=== PATIENT | male | born 1970 | race Caucasian/White ===

== ENCOUNTER 2024-03-29 04:27 | Inpatient (IN) ==
[2024-03-29] MEDS: SODIUM CHLORIDE 0.9% 1,000 ML IV ONE ×3 (04:41→09:11)
[2024-03-29] MEDS: ONDANSETRON INJ 2 MG/ML 2 ML VIAL IV STA (04:41)
[2024-03-29 05:00] LABS: Basophils # (auto) 0.06 K/uL (0.00-0.20); Basophils % (auto) 0.5 %; Eosinophils # (auto) 0.16 K/uL (0.00-0.50); Eosinophils % (auto) 1.2 %; Hematocrit (blood only) 49.9 % (42.0-52.0); Immature Granulocytes # (auto) 0.08 K/uL (0.01-0.20); Immature Granulocytes % (auto) 0.6 %; Lymphocytes # (auto) 1.89 K/uL (1.20-3.40); Lymphocytes % (auto) 14.3 %; Mean Corpuscular Hemoglobin 30.2 pg (25.0-34.0); Mean Corpuscular Hgb Conc 34.1 g/dL (32.0-36.0); Mean Corpuscular Volume 88.6 fL (80.0-100.0); Mean Platelet Volume 10.9 fL (9.4-12.4); Monocytes # (auto) 0.69 K/uL (0.11-0.59); Monocytes % (auto) 5.2 %; Neutrophils # (auto) 10.32 K/uL (1.40-6.50); Neutrophils % (auto) 78.2 %; Platelet Count 242 K/uL (130-400); RDW Standard Deviation 42.3 fL (36.4-46.3); Red Blood Count 5.63 M/uL (4.70-6.10)
[2024-03-29 05:12] LABS: Albumin Globulin Ratio 1.3 (0.9-2); Albumin Level 4.7 gm/dl (3.4-5.0); BUN Creatinine Ratio 13.6 (10-20); Bilirubin,Total 0.8 mg/dl (0.2-1.0); Calcium 10.5 mg/dl (8.6-10.3); Creatinine Clr Calc Pharmacy 61.9 ml/min; Est GFR (African American) 58.8 ml/min; Est GFR (Non-African American) 50.8 ml/min; Globulin 3.7 gm/dl (2.5-4.0); Magnesium 2.1 mg/dl (1.7-2.4); Potassium 4.2 mmol/L (3.5-5.1); Total Protein 8.4 gm/dl (6.0-8.3)
--- NOTE | 2024-03-29 05:12 | CT Scan Report ---
Exam(s): CT ABDOMEN + PELVIS Without Contrast EXAM: CT Abdomen and Pelvis Without Intravenous Contrast CLINICAL HISTORY: Left flank Pain. TECHNIQUE: Axial computed tomography images of the abdomen and pelvis without intravenous contrast. CTDI is 27.28 mGy and DLP is 1393.33 mGy-cm. Automated exposure control was utilized for the study. A dose lowering technique was utilized adhering to the principles of ALARA. COMPARISON: No relevant prior studies available. FINDINGS: Lung bases: Unremarkable. No mass. No consolidation. ABDOMEN: Liver: Fatty infiltration of the liver. Gallbladder and bile ducts: Bile duct is closed. No calcified stones. Pancreas: Unremarkable. No ductal dilation. Spleen: Unremarkable. No splenomegaly. Adrenals: Unremarkable. No mass. Kidneys and ureters: Mild left hydronephrosis secondary to a 2 mm ureterovesical junction calculus. Mild right medullary nephrocalcinosis. No hydronephrosis. Stomach and bowel: Diverticulosis. No obstruction. No mucosal thickening. PELVIS: Appendix: Normal appendix. Bladder: Unremarkable. No stones. Reproductive: Unremarkable as visualized. ABDOMEN and PELVIS: Intraperitoneal space: Unremarkable. No free air. No significant fluid collection. Bones/joints: There are degenerative changes of the spine. No acute fracture. No dislocation. Soft tissues: Small bilateral fat-containing inguinal hernias. Vasculature: Unremarkable. No abdominal aortic aneurysm. Lymph nodes: Unremarkable. No enlarged lymph nodes. IMPRESSION: 1. Mild left hydronephrosis secondary to a 2 mm ureterovesical junction calculus. 2. Fatty infiltration of the liver. 3. Mild right medullary nephrocalcinosis. No hydronephrosis. 4. Diverticulosis. Electronically signed by: Hina Cantu MD 03/29/24 05:11 AM
[2024-03-29] MEDS: fentaNYL citrate PF 100 MCG/2 ML VIAL IV STA (05:13)
[2024-03-29 05:20] LABS: Troponin I High Sensitivity 3.8 pg/ml (0-20)
[2024-03-29 05:23] LABS: Prothrombin Time 10.4 Seconds (9.0-12.0)
[2024-03-29 05:27] LABS: Appearance Urine Clear (Clear); Bacteria Urine Automated None Seen (None Seen); Bilirubin Urine Negative (Negative); Blood Urine Trace (Negative); Cast Urine Automated 0-2 /lpf (0-2); Color Urine Yellow; Epithelial Cell Urine Auto 0-2 /hpf (0-2); Glucose Urine UA Negative (Negative); Ketones Urine Trace (Negative); Leukocyte Esterase Urine Negative (Negative); Nitrite Urine Negative (Negative); Protein Urine 1+ (Negative); RBC Urine Automated 0-2 /hpf (0-2); Specific Gravity Urine 1.037 (1.000-1.030); Urobilinogen Urine Negative (Negative); WBC Urine Automated 0-5 /hpf (0-5)
[2024-03-29] MEDS: KETOROLAC 30 MG/ML VIAL IV ONE (05:34)
--- NOTE | 2024-03-29 05:34 | Emergency Department Note ---
Impression & Plan Acute left flank pain, Calculus of left ureter, Elevated lactic acid level, Hydronephrosis of left kidney, Leukocytosis, Acute pancreatitis ED Provider Note HISTORY OF PRESENT ILLNESS: Patient is a 54-year-old male presenting with left flank pain. Patient reports that he was awoken at 1 AM today from sleep with left flank pain. He states he is never had pain like this before. Describes it as a sharp and burning sensation. Denies any dysuria or hematuria. Reports he has vomited multiple times and is currently feeling nauseous. He denies any recent diarrhea. Denies any history of abdominal surgeries. Denies any notable fevers at home. Denies any chest pain or shortness of breath. Denies any history of kidney stones. Currently locates the pain in the left lateral flank with radiation down into the left groin. ROS: as above PHYSICAL EXAM: Constitutional: Patient appears in mild distress. Patient appears very uncomfortable on examination and is diaphoretic. HENT: Head: Normocephalic and atraumatic. Eyes: EOMI, PERRL Mouth/Throat: Mucous membranes moist. Neck: Trachea midline. Neck supple. Cardiovascular: RRR, No murmurs, rubs or gallops. Intact distal pulses. Pulmonary/Chest: No respiratory distress. Breath sounds clear and equal bilaterally. No wheezes or rales. Abdominal: Abdomen soft, no tenderness, rebound or guarding. Musculoskeletal: No edema, tenderness or deformity noted. Skin: Warm and dry. No rash, erythema, pallor or cyanosis Psychiatric: Appropriate mood and affect for situation. Neurological: Alert and keenly responsive. CN II-XII grossly intact, moving all extremities equally and fully. MDM: - Vitals signs showed hypertension and bradycardia - History obtained via patient. History as above. - Chronic conditions affecting care: Obesity - Differential diagnoses include, but are not limited to: ureteral stone; UTI; colitis; diverticulitis; perforated viscous - Order placed for continuous cardiac monitoring. At this time, monitor showed rate of 60 bpm with normal sinus rhythm, per my interpretation. - External medical records reviewed. Primary care visit note dated 01/15/2024 was reviewed. Patient follows in their clinic for his routine health maintenance examination. - EKG interpreted by myself showed normal sinus rhythm. Rate bradycardic at 58 bpm. QT 374. No acute ischemic changes. - Laboratory workup interpreted by myself showed leukocytosis (WBC 13.20) with left shift; normal PT/INR; slight hyponatremia (Na 135); CKD (Cr 1.54); elevated lactic acid (23); hypercalcemia (Ca 10.5); normal troponin; normal liver function; elevated lipase (467) - CT abdomen/pelvis wo contrast mild left hydronephrosis due to a 2 mm UVJ stone. - Blood cultures obtained and procalcitonin added to workup - Patient given 2L NS, 4 mg IV zofran and 50 mcg IV fentanyl. On reassessment, he is still complaining of significant pain, 15 mg IV toradol ordered. - Patient started empirically on 2g IV rocephin. Patient's sepsis fluid resuscitation volume based on ideal body weight is 2100.0 mL. - Discussion was had with case specialist about patient's case and need for admission - Hospitalist consulted for admission - [facility] ASSESSMENT AND PLAN: Diagnosis: acute left flank pain; left ureteral stone; left hydronephrosis; elevated lactic acid; acute pancreatitis; leukocytosis Plan: admit Past Med/Surg History Problem List (Updated 03/29/24 @ 05:42 by Loulou Payne MD) Acute pancreatitis (Acute) Leukocytosis (Acute) Hydronephrosis of left kidney (Acute) Elevated lactic acid level (Acute) Calculus of left ureter (Acute) Acute left flank pain (Acute) Colon cancer screening Encounter for pre-operative examination Routine health maintenance (Chronic) Obesity Bilateral hand pain Medical History Arthritis Hx MRSA infection History of COVID-19 Osteoarthritis Surgical History Hx of vasectomy History of tooth extraction History of wisdom tooth extraction Hx of shoulder surgery Family History Grandmother Breast cancer Other No family history of adverse response to anesthesia Denies family history of Ovarian cancer Prostate cancer Myocardial infarction Colorectal cancer Social History Smoking Status: Former smoker Tobacco Type: Cigarettes Cigarettes Per Day: 10 cigs per day > advised npo status; Second Hand Exposure: No; Do You Dip or Chew Tobacco: No; Hx Alcohol Use: Yes Hx Substance Use: No Preferred Language: [place] Communication Ability: Effective Emergency Department Aide Required: No Beliefs That Will Affect Care: None marital status: Current Living Situation: Spouse current occupational status: employed How many Children do You have: 2 Feels Safe at Home: Yes caffeine: Yes Dental Care, Regularly: Yes Physical Activity Frequency: Does not Exercise Seatbelt Use: always Sunscreen Use: Yes Assistive Devices: None Allergies Allergies Allergy/AdvReac Type Severity Reaction Status Date / Time No Known Allergies Allergy Verified 01/20/24 08:33 Home Meds Home Medications Medication Instructions Recorded Confirmed No Known Home Medications 01/20/24 01/20/24 Results & Data (ED) Vital Signs Vital Signs - 24 hr 03/29/24 04:30 03/29/24 04:44 Temperature 36.5 C Temperature Source Temporal Artery Scan Pulse Rate 62 58 L Respiratory Rate 20 Respiratory Effort / Characteristics Non-Labored Spontaneous Respiratory Depth Normal Blood Pressure 153/79 H Blood Pressure Mean 103 Pulse Oximetry 100 Oxygen Delivery Method Room Air Sepsis Recent Fever Within 48 Hours No Sepsis New/Unexplained Change in Mental Status N/A Sepsis Action Taken by Nursing No Action Required Laboratory Data 03/29/24 04:29 03/29/24 04:29 Lab Results 03/29/24 03/29/24 Range/Units 04:29 04:41 WBC 13.20 H (4.8-10.8) K/ul RBC 5.63 (4.70-6.10) M/uL Hgb 17.0 (14.0-18.0) g/dl Hct 49.9 (42.0-52.0) % MCV 88.6 (80.0-100.0) fL MCH 30.2 (25.0-34.0) pg MCHC 34.1 (32.0-36.0) g/dL RDW Std Deviation 42.3 (36.4-46.3) fL RDW Coeff of Waylon 13.0 (11.5-14.5) % Plt Count 242 (130-400) K/uL MPV 10.9 (9.4-12.4) fL Immature Gran % (Auto) 0.6 % Neut % (Auto) 78.2 % Lymph % (Auto) 14.3 % [place] % (Auto) 5.2 % Eos % (Auto) 1.2 % Baso % (Auto) 0.5 % Neut # (Auto) 10.32 H (1.40-6.50) K/uL Lymph # (Auto) 1.89 (1.20-3.40) K/uL [place] # (Auto) 0.69 H (0.11-0.59) K/uL Eos # (Auto) 0.16 (0.00-0.50) K/uL Baso # (Auto) 0.06 (0.00-0.20) K/uL Immature Gran # (Auto) 0.08 (0.01-0.20) K/uL PT 10.4 (9.0-12.0) Seconds INR 1.0 (0.9-1.1) Sodium 135 L (136-145) mmol/L Potassium 4.2 (3.5-5.1) mmol/L Chloride 101 (98-107) mmol/L Carbon Dioxide 28 (21-32) mmol/L Anion Gap 6 (3-11) BUN 21 (6-23) mg/dl Creatinine 1.54 H (0.6-1.4) mg/dl Est Cr Clr Drug Dosing 61.9 ml/min Est GFR ( Amer) 58.8 ml/min Est GFR (Non-Af Amer) 50.8 ml/min BUN/Creatinine Ratio 13.6 (10-20) Glucose 135 H (70-99(Fasting)) mg/dl Lactate 2.3 H* (0.4-2.0) mmol/L Calcium 10.5 H (8.6-10.3) mg/dl Magnesium 2.1 (1.7-2.4) mg/dl Total Bilirubin 0.8 (0.2-1.0) mg/dl AST 19 (13-39) U/L ALT 26 (7-52) U/L Alkaline Phosphatase 66 (34-104) U/L Troponin I High Sens 3.8 (0-20) pg/ml Total Protein 8.4 H (6.0-8.3) gm/dl Albumin 4.7 (3.4-5.0) gm/dl Globulin 3.7 (2.5-4.0) gm/dl Albumin/Globulin Ratio 1.3 (0.9-2) Lipase 467 H (11-82) U/L Urine Color Yellow Urine Appearance Clear (Clear) Urine pH 5.0 (4.5-7.5) Ur Specific [place] 1.037 H (1.000-1.030) Urine Protein 1+ H (Negative) Urine Glucose (UA) Negative (Negative) Urine Ketones Trace H (Negative) Urine Blood Trace H (Negative) Urine Nitrite Negative (Negative) Urine Bilirubin Negative (Negative) Urine Urobilinogen Negative (Negative) Ur Leukocyte Esterase Negative (Negative) Urine WBC (Auto) 0-5 (0-5) /hpf Urine RBC (Auto) 0-2 (0-2) /hpf U Hyaline Cast (Auto) 0-2 (0-2) /lpf U Epithel Cells (Auto) 0-2 (0-2) /hpf Urine Bacteria (Auto) None Seen (None Seen) Administered Medications Discontinued Medications Fentanyl Citrate (Fentanyl Citrate Pf 100 Mcg/2 Ml Vial) 50 mcg IV NOW STA Stop: 03/29/24 05:09 Last Admin: 03/29/24 05:13 Dose: 50 mcg Documented By: TYRONE Sodium Chloride (Nss) 1,000 mls @ 999 mls/hr IV .Q1H1M ONE Stop: 03/29/24 05:29 Last Admin: 03/29/24 04:41 Dose: 999 mls/hr Documented By: BRUNO Ketorolac Tromethamine (Ketorolac 30 Mg/Ml Vial) 15 mg IV NOW ONE Stop: 03/29/24 05:32 Last Admin: 03/29/24 05:34 Dose: 15 mg Documented By: BRUNO Ondansetron HCl (Ondansetron Inj 2 Mg/Ml 2 Ml Vial) 4 mg IV NOW STA Stop: 03/29/24 04:30 Last Admin: 03/29/24 04:41 Dose: 4 mg Documented By: BRUNO Imaging Data Radiologist's Impression: Abdomen/Pelvis CT 03/29/24 04:33 Exam(s): CT ABDOMEN + PELVIS Without Contrast EXAM: CT Abdomen and Pelvis Without Intravenous Contrast CLINICAL HISTORY: Left flank Pain. TECHNIQUE: Axial computed tomography images of the abdomen and pelvis without intravenous contrast. CTDI is 27.28 mGy and DLP is 1393.33 mGy-cm. Automated exposure control was utilized for the study. A dose lowering technique was utilized adhering to the principles of ALARA. COMPARISON: No relevant prior studies available. FINDINGS: Lung bases: Unremarkable. No mass. No consolidation. ABDOMEN: Liver: Fatty infiltration of the liver. Gallbladder and bile ducts: Bile duct is closed. No calcified stones. Pancreas: Unremarkable. No ductal dilation. Spleen: Unremarkable. No splenomegaly. Adrenals: Unremarkable. No mass. Kidneys and ureters: Mild left hydronephrosis secondary to a 2 mm ureterovesical junction calculus. Mild right medullary nephrocalcinosis. No hydronephrosis. Stomach and bowel: Diverticulosis. No obstruction. No mucosal thickening. PELVIS: Appendix: Normal appendix. Bladder: Unremarkable. No stones. Reproductive: Unremarkable as visualized. ABDOMEN and PELVIS: Intraperitoneal space: Unremarkable. No free air. No significant fluid collection. Bones/joints: There are degenerative changes of the spine. No acute fracture. No dislocation. Soft tissues: Small bilateral fat-containing inguinal hernias. Vasculature: Unremarkable. No abdominal aortic aneurysm. Lymph nodes: Unremarkable. No enlarged lymph nodes. IMPRESSION: 1. Mild left hydronephrosis secondary to a 2 mm ureterovesical junction calculus. 2. Fatty infiltration of the liver. 3. Mild right medullary nephrocalcinosis. No hydronephrosis. 4. Diverticulosis. Electronically signed by: Hina Cantu MD 03/29/24 05:11 AM Discharge Plan Visit Data Chief Complaint: Flank Pain Stated Complaint: SIDE PAIN,NAUSEA,VOM ED Provider: Loulou Payne Discharge Problem: Acute left flank pain, Calculus of left ureter, Elevated lactic acid level, Hydronephrosis of left kidney, Leukocytosis, Acute pancreatitis Forms Stand Alone Forms: My [facility] Prescriptions Prescriptions: No Action No Known Home Medications Referrals Referrals: Lenora Massey MD [Primary Care Provider] -
--- NOTE | 2024-03-29 05:55 | History & Physical Report ---
Date of Service March 29, 2024 Assessment & Plan (1) Calculus of left ureter: Plan: Patient with 2mm obstructing stone at left UVJ with hydronephrosis. He does have elevation in Cr from baseline at 1.53 from 1.25. Concern for possible infection given leukocytosis and elevation of lactate -Admit to medical -Keep NPO -Flomax 0.4mg po ordered now and daily -IVF with LR at 125mL/hr -Urine strainer -Tylenol PRN -Zofran PRN -Morphine PRN -Urology consultation appreciated Patient received Ceftriaxone - will hold additional antibiotics for now pending additional workup (2) Elevated lipase: Plan: Patient denies epigastric pain. No findings on CT of the abdomen suggestive of acute pancreatitis -Keep NPO as above -Pain control -Anti-emetics -Consider repeat lipase level with AM labs if pain continues (3) Elevated lactic acid level: Plan: BP stable -Repeat pending Plan F/E/N - LR at 125mL/hr x 2L, monitor electrolytes and replete as needed, NPO for now Ppx - SCDs Code - Full Dispo - Admit to medical History of Present Illness Chief Complaint: left flank pain Primary Care Provider: Lenora Massey MD 54yo male presenting with acute onset left flank pain that woke him from sleep at 01:00. Pain is severe, 10/10, constant with associated nausea and diaphoresis. No urinary complaints. He does report constipation Otherwise denies chest pain, palpitations, SOB, cough. No history of renal stones ER Course: Ceftriaxone 2L NSS Toradol 15mg IV Fentanyl 50mcg IV Flomax - ordered, not yet given Dilaudid 1mg IV - ordered, not yet given Allergies Allergy/AdvReac Type Severity Reaction Status Date / Time No Known Allergies Allergy Verified 01/20/24 08:33 Home Medications Medication Instructions Recorded Confirmed Type No Known Home Medications 01/20/24 01/20/24 History Past Med/Surg History Problem List (Updated 03/29/24 @ 06:16 by Priya Berger DO) Elevated lipase Acute pancreatitis (Acute) Leukocytosis (Acute) Hydronephrosis of left kidney (Acute) Elevated lactic acid level (Acute) Calculus of left ureter (Acute) Acute left flank pain (Acute) Colon cancer screening Encounter for pre-operative examination Routine health maintenance (Chronic) Obesity Bilateral hand pain Medical History Arthritis Hx MRSA infection 15 yrs ago to face > resolved History of COVID-19 approx 2 yrs ago > not hospitalized Osteoarthritis Surgical History Hx of vasectomy History of tooth extraction History of wisdom tooth extraction Hx of shoulder surgery Left Family History Grandmother Breast cancer Other No family history of adverse response to anesthesia Denies family history of Ovarian cancer Prostate cancer Myocardial infarction Colorectal cancer Social History Smoking Status: Former smoker Tobacco Type: Cigarettes Cigarettes Per Day: 10 cigs per day > advised npo status; Second Hand Exposure: No; Do You Dip or Chew Tobacco: No; Hx Alcohol Use: Yes Hx Substance Use: No Preferred Language: Citizen Of [place] Communication Ability: Effective Cement Car Dumper Required: No Beliefs That Will Affect Care: None marital status: Current Living Situation: Spouse current occupational status: employed How many Children do You have: 2 Feels Safe at Home: Yes caffeine: Yes Dental Care, Regularly: Yes Physical Activity Frequency: Does not Exercise Seatbelt Use: always Sunscreen Use: Yes Assistive Devices: None Review of Systems Review of Systems: All systems reviewed & are unremarkable except as noted in HPI & below Physical Exam Physical Exam: General: patient in distress secondary to acute left flank pain Skin: cool to touch, clammy HEENT: NC/AT, PERRL, EOMI, anicteric sclera, conjunctiva without injection, external ear normal to inspection and nontender, nares patent, moist mucus membranes, dentition intact, no oropharyngeal lesions, neck supple, trachea midline, no LAD, no thyromegaly, no JVD Heart: +S1/S2, regular, no m/r/g Lungs: equal air entry bilaterally, no rales/rhonchi/wheezes Abd: +BS, soft,mildly distended, tender to palpation in LLQ, no rebound/guarding Ext: cool, 2+ pulses in UE/LE bilaterally, no clubbing/cyanosis or edema Neuro: nonfocal, patient AA&O x 4, speech intact, no facial droop, moving all extremities on command with equal strength 5/5 Results & Data Results & Data Vital Signs (Past 12 Hours) Vital Signs Temp Pulse Resp BP Pulse Ox O2 Del Method 03/29/24 04:44 58 L 03/29/24 04:30 36.5 C 62 20 153/79 H 100 Room Air Laboratory Results Laboratory Results WBC 13.20 K/ul (4.8-10.8) H 03/29/24 04:29 RBC 5.63 M/uL (4.70-6.10) 03/29/24 04:29 Hgb 17.0 g/dl (14.0-18.0) 03/29/24 04:29 Hct 49.9 % (42.0-52.0) 03/29/24 04:29 MCV 88.6 fL (80.0-100.0) 03/29/24 04:29 MCH 30.2 pg (25.0-34.0) 03/29/24 04: MCHC 34.1 g/dL (32.0-36.0) 03/29/24 04:29 RDW Std Deviation 42.3 fL (36.4-46.3) 03/29/24 04:29 RDW Coeff of Waylon 13.0 % (11.5-14.5) 03/29/24 04:29 Plt Count 242 K/uL (130-400) 03/29/24 04:29 MPV 10.9 fL (9.4-12.4) 03/29/24 04:29 Immature Gran % (Auto) 0.6 % 03/29/24 04:29 Neut % (Auto) 78.2 % 03/29/24 04:29 Lymph % (Auto) 14.3 % 03/29/24 04:29 [place] % (Auto) 5.2 % 03/29/24 04:29 Eos % (Auto) 1.2 % 03/29/24 04:29 Baso % (Auto) 0.5 % 03/29/24 04:29 Neut # (Auto) 10.32 K/uL (1.40-6.50) H 03/29/24 04:29 Lymph # (Auto) 1.89 K/uL (1.20-3.40) 03/29/24 04:29 [place] # (Auto) 0.69 K/uL (0.11-0.59) H 03/29/24 04:29 Eos # (Auto) 0.16 K/uL (0.00-0.50) 03/29/24 04:29 Baso # (Auto) 0.06 K/uL (0.00-0.20) 03/29/24 04:29 Immature Gran # (Auto) 0.08 K/uL (0.01-0.20) 03/29/24 04:29 PT 10.4 Seconds (9.0-12.0) 03/29/24 04:29 INR 1.0 (0.9-1.1) 03/29/24 04:29 Sodium 135 mmol/L (136-145) L 03/29/24 04:29 Potassium 4.2 mmol/L (3.5-5.1) 03/29/24 04:29 Chloride 101 mmol/L (98-107) 03/29/24 04:29 Carbon Dioxide 28 mmol/L (21-32) 03/29/24 04:29 Anion Gap 6 (3-11) 03/29/24 04:29 BUN 21 mg/dl (6-23) 03/29/24 04:29 Creatinine 1.54 mg/dl (0.6-1.4) H 03/29/24 04:29 Est Cr Clr Drug Dosing 61.9 ml/min 03/29/24 04:29 Est GFR ( Amer) 58.8 ml/min 03/29/24 04:29 Est GFR (Non-Af Amer) 50.8 ml/min 03/29/24 04:29 BUN/Creatinine Ratio 13.6 (10-20) 03/29/24 04:29 Glucose 135 mg/dl (70-99(Fasting)) H 03/29/24 04:29 Lactate 2.3 mmol/L (0.4-2.0) H* 03/29/24 04:29 Calcium 10.5 mg/dl (8.6-10.3) H 03/29/24 04:29 Magnesium 2.1 mg/dl (1.7-2.4) 03/29/24 04:29 Total Bilirubin 0.8 mg/dl (0.2-1.0) 03/29/24 04:29 AST 19 U/L (13-39) 03/29/24 04:29 ALT 26 U/L (7-52) 03/29/24 04:29 Alkaline Phosphatase 66 U/L (34-104) 03/29/24 04:29 Troponin I High Sens 3.8 pg/ml (0-20) 03/29/24 04:29 Total Protein 8.4 gm/dl (6.0-8.3) H 03/29/24 04:29 Albumin 4.7 gm/dl (3.4-5.0) 03/29/24 04:29 Globulin 3.7 gm/dl (2.5-4.0) 03/29/24 04:29 Albumin/Globulin Ratio 1.3 (0.9-2) 03/29/24 04:29 Lipase 467 U/L (11-82) H 03/29/24 04:29 Urine Color Yellow 03/29/24 04:41 Urine Appearance Clear (Clear) 03/29/24 04:41 Urine pH 5.0 (4.5-7.5) 03/29/24 04:41 Ur Specific [place] 1.037 (1.000-1.030) H 03/29/24 04:41 Urine Protein 1+ (Negative) H 03/29/24 04:41 Urine Glucose (UA) Negative (Negative) 03/29/24 04:41 Urine Ketones Trace (Negative) H 03/29/24 04:41 Urine Blood Trace (Negative) H 03/29/24 04:41 Urine Nitrite Negative (Negative) 03/29/24 04:41 Urine Bilirubin Negative (Negative) 03/29/24 04:41 Urine Urobilinogen Negative (Negative) 03/29/24 04:41 Ur Leukocyte Esterase Negative (Negative) 03/29/24 04:41 Urine WBC (Auto) 0-5 /hpf (0-5) 03/29/24 04:41 Urine RBC (Auto) 0-2 /hpf (0-2) 03/29/24 04:41 U Hyaline Cast (Auto) 0-2 /lpf (0-2) 03/29/24 04:41 U Epithel Cells (Auto) 0-2 /hpf (0-2) 03/29/24 04:41 Urine Bacteria (Auto) None Seen (None Seen) 03/29/24 04:41 Impressions Abdomen/Pelvis CT 03/29/24 04:33 Exam(s): CT ABDOMEN + PELVIS Without Contrast EXAM: CT Abdomen and Pelvis Without Intravenous Contrast CLINICAL HISTORY: Left flank Pain. TECHNIQUE: Axial computed tomography images of the abdomen and pelvis without intravenous contrast. CTDI is 27.28 mGy and DLP is 1393.33 mGy-cm. Automated exposure control was utilized for the study. A dose lowering technique was utilized adhering to the principles of ALARA. COMPARISON: No relevant prior studies available. FINDINGS: Lung bases: Unremarkable. No mass. No consolidation. ABDOMEN: Liver: Fatty infiltration of the liver. Gallbladder and bile ducts: Bile duct is closed. No calcified stones. Pancreas: Unremarkable. No ductal dilation. Spleen: Unremarkable. No splenomegaly. Adrenals: Unremarkable. No mass. Kidneys and ureters: Mild left hydronephrosis secondary to a 2 mm ureterovesical junction calculus. Mild right medullary nephrocalcinosis. No hydronephrosis. Stomach and bowel: Diverticulosis. No obstruction. No mucosal thickening. PELVIS: Appendix: Normal appendix. Bladder: Unremarkable. No stones. Reproductive: Unremarkable as visualized. ABDOMEN and PELVIS: Intraperitoneal space: Unremarkable. No free air. No significant fluid collection. Bones/joints: There are degenerative changes of the spine. No acute fracture. No dislocation. Soft tissues: Small bilateral fat-containing inguinal hernias. Vasculature: Unremarkable. No abdominal aortic aneurysm. Lymph nodes: Unremarkable. No enlarged lymph nodes. IMPRESSION: 1. Mild left hydronephrosis secondary to a 2 mm ureterovesical junction calculus. 2. Fatty infiltration of the liver. 3. Mild right medullary nephrocalcinosis. No hydronephrosis. 4. Diverticulosis. Electronically signed by: Hina Cantu MD 03/29/24 05:11 AM ECG Additional Comments: EKG with sinus bradycardia at 58bpm, no acute ischemic changes Code Status & VTE Plan VTE Prophylaxis Plan VTE Prophylaxis will be ordered: Yes PG Care Time/CCT Total # of Minutes Spent Total Time Spent with Patient: Total time spent is greater than 50% in coordination of care (as documented) at patient's floor/unit and/or counseling patient: Coding Level of Care Code 90433 INT INP/OBS CARE 2/55MIN Diagnoses Calculus of left ureter N20.1 Elevated lipase R74.8 Elevated lactic acid level R79.89
[2024-03-29] MEDS: TAMSULOSIN HCL 0.4 MG CAP PO ONE (06:13)
[2024-03-29] MEDS: cefTRIAXone SODIUM 2,000 MG/50 ML BAG IV STA (06:14)
[2024-03-29] MEDS: HYDROmorphone INJ 1 MG/ML SYRINGE IV STA (06:23)
[2024-03-29] MEDS ORDERED: ONDANSETRON INJ 2 MG/ML 2 ML VIAL IV PRN (08:49)
[2024-03-29] MEDS ORDERED: MoRPHine SULFATE 2 MG/ML CARP IV PRN (08:49)
[2024-03-29] MEDS: POLYETHYLENE (MIRALAX) 17 GM PACK PO SCH (10:05)
[2024-03-29] MEDS: MoRPHine SULFATE 4 MG/ML 1 ML CARP\\VIAL IV PRN (10:09)
[2024-03-29] MEDS: LACTATED RINGER'S 1,000 ML IV SCH (10:17)
--- NOTE | 2024-03-29 12:21 | Urology Consultation ---
Date of Consultation March 29, 2024 Assessment & Plan (1) Hydronephrosis of left kidney: (2) Calculus of left ureter: 54 yo/M admitted for left flank pain secondary to an obstructing 2 mm left UVJ stone Patient is afebrile and hemodynamically stable Labs reviewedcreatinine 1.54, WBC 13.2 Urinalysis was not suggestive of infection Blood cultures are pending He was treated with Ceftriaxone on arrival His pain is currently tolerable We discussed options for stone management including trial of passage/medical expulsive therapy versus options for surgical management both inpatient and outpatient Discussed that his stone has a decent probability of passing spontaneously given its size and location After discussion, he elects trial of passage/medical expulsive therapy No surgical intervention today, okay for diet today and will reevaluate tomorrow Recommend hydration, tamsulosin, supportive care and pain control Strain all urine will follow, please contact our service with any questions or changes in clinical status History of Present Illness Attending Physician: Priya Berger DO History of Present Illness This is a 54-year-old male who presented to the emergency department this morning for evaluation of acute left flank pain, nausea and vomiting. He was afebrile and hemodynamically stable on arrival. Workup in the emergency department included CT abdomen/pelvis without contrast which showed mild left hydronephrosis secondary to a 2 mm UVJ stone. Lab work showed creatinine 1.54, WBC 13.2, hemoglobin 17.0, lactate 2.3. Urinalysis notable for 1+ protein, trace ketones and trace blood, but was negative for leukocyte esterase and bacteria. ED course included IV fluids, ketorolac, ondansetron and fentanyl. He was admitted to the hospital medicine service. Urology is consulted for left ureteral stone. Patient seen and examined at bedside. He reports he is currently feeling better since arrival. He reports left flank pain currently rated 4 out of 10. Denies nausea or vomiting. No fever or chills. He is voiding spontaneously, no dysuria or hematuria. No prior history of kidney stones. He reports that his father has history of kidney stones. Allergies Allergy/AdvReac Type Severity Reaction Status Date / Time No Known Allergies Allergy Verified 01/20/24 08:33 Home Medications Medication Instructions Recorded Confirmed Type No Known Home Medications 01/20/24 01/20/24 History Patient History Medical History Arthritis Hx MRSA infection 15 yrs ago to face > resolved History of COVID-19 approx 2 yrs ago > not hospitalized Osteoarthritis Surgical History Hx of vasectomy History of tooth extraction History of wisdom tooth extraction Hx of shoulder surgery Left Family History Grandmother Breast cancer Other No family history of adverse response to anesthesia Denies family history of Ovarian cancer Prostate cancer Myocardial infarction Colorectal cancer Social History Smoking Status: Current every day smoker Tobacco Type: Cigarettes Cigarettes Per Day: 10 cigs per day > advised npo status; Second Hand Exposure: No; Do You Dip or Chew Tobacco: No; Tobacco Cessation Education Requested by Patient: No Hx Alcohol Use: Yes Alcohol type: beer Hx Substance Use: No Preferred Language: [place] Communication Ability: Effective Perfumer Required: No Beliefs That Will Affect Care: None marital status: Current Living Situation: Spouse current occupational status: employed How many Children do You have: 2 Other Information That Helps Us Care for You: No Feels Safe at Home: Yes Safety Concerns: Feels Safe At This Time caffeine: Yes Dental Care, Regularly: Yes Physical Activity Frequency: Does not Exercise Seatbelt Use: always Sunscreen Use: Yes Assistive Devices: None Review of Systems Review of Systems: All systems reviewed & are unremarkable except as noted in HPI & below Physical Exam Constitutional: well developed and well nourished; no acute distress Respiratory: normal respiratory effort; no respiratory distress and no labored breathing Gastrointestinal (Abdomen): Inspection/Auscultation: abdomen normal to inspection Musculoskeletal: Head/Neck/Chest: normocephalic Neurologic: moves all extremities and awake Psychiatric: Orientation: alert and oriented x 3 Results & Data Vital Signs (Past 12 Hours) Vital Signs Temp Pulse Pulse Pulse Resp BP BP 03/29/24 08:56 36.5 C 86 18 148/78 H 03/29/24 08:06 61 18 184/89 H 03/29/24 06:28 55 L 22 155/91 H 03/29/24 04:44 58 L 03/29/24 04:30 36.5 C 62 20 153/79 H Pulse Ox O2 Del Method 03/29/24 08:56 97 Room Air 03/29/24 08:06 96 Room Air 03/29/24 06:28 97 Room Air 03/29/24 04:44 03/29/24 04:30 100 Room Air PG Care Time/CCT Total # of Minutes Spent Total Time Spent with Patient: Total time spent is greater than 50% in coordination of care (as documented) at patient's floor/unit and/or counseling patient: Coding Level of Care Code 45949 IN/OBS CONSULT LVL 4,60M Diagnoses Hydronephrosis of left kidney N13.30 Calculus of left ureter N20.1
[2024-03-29] MEDS: KETOROLAC TROMETHAMINE 15 MG/ML VIAL IV ONE (12:46)
--- NOTE | 2024-03-29 12:51 | Electrocardiogram Report ---
Test Reason : Blood Pressure : / mmHG Vent. Rate : 058 BPM Atrial Rate : 058 BPM P-R Int : 122 ms QRS Dur : 082 ms QT Int : 374 ms P-R-T Axes : 043 064 065 degrees QTc Int : 367 ms Sinus bradycardia Otherwise normal ECG No previous ECGs available Confirmed by Moy Arreguin ([id number]) on 03/29/2024 12:51:32 PM Referred By: REFERRED SELF Confirmed By:Moy Arreguin
[2024-03-29] MEDS: KETOROLAC TROMETHAMINE 15 MG/ML VIAL IV PRN (22:26)
--- NOTE | 2024-03-30 01:35 | Communication Note ---
Date of Service: March 29, 2024 Not yet past stone. Cr no significant increase from baseline - therefore will add Toradol for pain control. Otherwise no change to plan from admission.
[2024-03-30] MEDS: TAMSULOSIN HCL 0.4 MG CAP PO SCH (07:36)
--- NOTE | 2024-03-30 09:47 | Urology Progress Note ---
Date of Service March 30, 2024 Assessment & Plan (1) Calculus of left ureter: (2) Hydronephrosis of left kidney: Plan: Patient afebrile and hemodynamically stable Blood cultures showing no growth x 24 hours Denies stone passage overnight, continues to have intermittent flank pain Reviewed options for stone management including trial of passage/medical expulsive therapy versus surgical intervention After discussion, he elects trial of passage and we discussed outpatient management of stone Recommend continue hydration, tamsulosin, and symptom management Recommend continue to strain all urine Labs resulted after visit with patient- WBC trending down (10.68), creatinine increased today (2.29) He had breakfast this morning Reasonable to continue with trial of passage and continue medical management will follow Admission and Anticipated Discharge Date Admission Date: March 29, 2024 Subjective Patient seen and examined at bedside this morning He is awake and resting in bed Continues to have intermittent flank pain Voiding spontaneously, no dysuria or hematuria Denies stone passage overnight Patient had breakfast this morning Denies fever or chills Denies nausea/vomiting Review of Systems Constitutional: as per Subjective / HPI Genitourinary: + as per Subjective / HPI Physical Exam Constitutional: well developed and well nourished; no acute distress Respiratory: normal respiratory effort; no respiratory distress and no labored breathing Gastrointestinal (Abdomen): Inspection/Auscultation: abdomen normal to inspection Musculoskeletal: Head/Neck/Chest: normocephalic Neurologic: moves all extremities and awake Psychiatric: Orientation: alert and oriented x 3 Results & Data Vital Signs (Past 12 Hours) Vital Signs Temp Pulse Resp BP Pulse Ox O2 Del Method 03/30/24 07:33 36.9 C 83 20 154/70 H 96 Room Air PG Care Time/CCT Total # of Minutes Spent Total Time Spent with Patient: Total time spent is greater than 50% in coordination of care (as documented) at patient's floor/unit and/or counseling patient: Coding Level of Care Code 23874 SUB INP/OBS CARE 25MIN Diagnoses Calculus of left ureter N20.1 Hydronephrosis of left kidney N13.30
[2024-03-30 09:49] LABS: Hematocrit (blood only) 41.7 % (42.0-52.0); Hemoglobin 14.2 g/dl (14.0-18.0); Mean Corpuscular Hemoglobin 29.6 pg (25.0-34.0); Mean Corpuscular Hgb Conc 34.1 g/dL (32.0-36.0); Mean Corpuscular Volume 86.9 fL (80.0-100.0); Mean Platelet Volume 10.9 fL (9.4-12.4); Platelet Count 176 K/uL (130-400); RDW Coefficient of Variation 12.8 % (11.5-14.5); RDW Standard Deviation 40.6 fL (36.4-46.3); White Blood Count 10.68 K/ul (4.8-10.8)
[2024-03-30 10:23] LABS: BUN Creatinine Ratio 10.9 (10-20); Calcium 8.6 mg/dl (8.6-10.3); Est GFR (African American) 36.4 ml/min; Est GFR (Non-African American) 31.4 ml/min
--- NOTE | 2024-03-30 13:18 | Hospitalist Progress Note ---
Date of Service March 30, 2024 Assessment & Plan (1) Calculus of left ureter: Plan: Patient with 2mm obstructing stone at left UVJ with hydronephrosis. Also with elevated creatinine from baseline and possible UTI. -Stone has not passed according to patient's -Continue to strain urine -Flomax 0.4mg po ordered now and daily -IVF with LR at 125mL/hr -Urine strainer -Tylenol PRN -Zofran PRN -Morphine PRN -Discontinue Toradol on account of worsening serum creatinine -Urology consultation appreciated (2) Elevated lipase: Plan: Patient denies epigastric pain. No findings on CT of the abdomen suggestive of acute pancreatitis -Pain control -Anti-emetics -Consider repeat lipase level with AM labs if pain continues (3) Elevated lactic acid level: Plan: BP stable -Repeat pending Plan F/E/N - LR at 125mL/hr x 2L, monitor electrolytes and replete as needed, Ppx - SCDs Code - Full Dispo - Admit to medical Admission and Anticipated Discharge Date Admission Date: March 29, 2024 Subjective Patient seen and examined, still has not passed the stone states abdominal and flank pain is tolerable. Review of Systems Review of Systems: All systems reviewed are negative, apart from the ones contained in the history. Physical Exam Physical Exam: The patient is awake, alert and oriented 3, well developed and well nourished, normocephalic and atraumatic, lying in bed and in no acute distress. HEENT--PERRL, EOMI, mucous membranes and oropharynx mildly dry Neck--supple. No JVD. No bruits. Thyroid normal, trachea midline, no adenopathy. Heart--normal S1 and S2. No murmurs, rubs or gallops. Lungs--clear bilaterally, no respiratory distress, no accessory muscle use. Abdomen--normal bowel sounds and soft. Extremities--no cyanosis or clubbing. No edema. Dermatologic--normal skin turgor, normal color, no abnormal lymph nodes, no rash. Neurologic--cranial nerves II through XII grossly intact. Rheumatologic--normal range of motion. Psychiatric--normal affect. Results & Data Results & Data Vital Signs (Past 12 Hours) Vital Signs Temp Pulse Resp BP Pulse Ox O2 Del Method 03/30/24 07:33 98.4 F 83 20 154/70 H 96 Room Air PG Care Time/CCT Total # of Minutes Spent Total Time Spent with Patient: Total time spent is greater than 50% in coordination of care (as documented) at patient's floor/unit and/or counseling patient: Coding Level of Care Code 62878 SUB INP/OBS CARE 2/35MIN Diagnoses Calculus of left ureter N20.1 Elevated lipase R74.8 Elevated lactic acid level R79.89 Time Spent (min) 35
[2024-03-30] MEDS: DOCUSATE SODIUM 100 MG CAP PO PRN (15:23)
[2024-03-30] MEDS: ACETAMINOPHEN 325 MG TAB PO PRN (15:24)
[2024-03-30] MEDS: bisacodyL 10 MG SUPP PR STA (15:24)
--- NOTE | 2024-03-30 15:35 | Discharge Summary ---
Date of Service March 30, 2024 Admission HPI Per Admitting Provider 54yo male presenting with acute onset left flank pain that woke him from sleep at 01:00. Pain is severe, 10/10, constant with associated nausea and diaphoresis. No urinary complaints. He does report constipation Otherwise denies chest pain, palpitations, SOB, cough. No history of renal stones ER Course: Ceftriaxone 2L NSS Toradol 15mg IV Fentanyl 50mcg IV Flomax - ordered, not yet given Dilaudid 1mg IV - ordered, not yet given Principal Diagnosis Renal stone Discharge Exam The patient is awake, alert and oriented 3, well developed and well nourished, normocephalic and atraumatic, lying in bed and in no acute distress. HEENT--PERRL, EOMI, mucous membranes and oropharynx mildly dry Neck--supple. No JVD. No bruits. Thyroid normal, trachea midline, no adenopathy. Heart--normal S1 and S2. No murmurs, rubs or gallops. Lungs--clear bilaterally, no respiratory distress, no accessory muscle use. Abdomen--normal bowel sounds and soft. Extremities--no cyanosis or clubbing. No edema. Dermatologic--normal skin turgor, normal color, no abnormal lymph nodes, no rash. Neurologic--cranial nerves II through XII grossly intact. Rheumatologic--normal range of motion. Psychiatric--normal affect. Discharge Data Allergies Allergy/AdvReac Type Severity Reaction Status Date / Time No Known Allergies Allergy Verified 03/29/24 17:54 Consultations 03/29/24 05:36 ED Decision to Admit Stat 03/29/24 08:49 Consult Urology Routine Ordered Studies 03/29/24 04:33 CT Abd and Pelvis [CT abd pelvis wo con] Stat Hospital Course (1) Calculus of left ureter: Patient with 2mm obstructing stone at left UVJ with hydronephrosis. Also with elevated creatinine from baseline and possible UTI. -Stone has not passed according to patient's -Continue to strain urine -Flomax 0.4mg po ordered now and daily -IVF with LR at 125mL/hr -Urine strainer -Tylenol PRN -Zofran PRN -Morphine PRN -Discontinue Toradol on account of worsening serum creatinine -Urology consultation appreciated (2) Elevated lipase: Patient denies epigastric pain. No findings on CT of the abdomen suggestive of acute pancreatitis -Pain control -Anti-emetics -Consider repeat lipase level with AM labs if pain continues (3) Elevated lactic acid level: BP stable -Repeat pending Plan F/E/N - LR at 125mL/hr x 2L, monitor electrolytes and replete as needed, Ppx - SCDs Code - Full Dispo - Admit to medical Total Time Total Time Spent Total Time Spent (In Minutes): 35 Discharge Plan Discharge Items Patient Disposition: Home - Self-Care Reason For Visit: RENAL STONE Discharge Diagnosis: Renal stone Activity: Resume your previous activity Non-emergency contact: Primary Care Provider and Urologist Call non-emergency contact if: you have any medication questions Follow-up/Referrals: Lenora Massey MD [Primary Care Provider] - Diet: Regular Addtl Attending Provider Instructions: Please make appointment to follow-up with urology outpatient Pending Studies at Discharge: No Stand-Alone Forms: My [employer], Smoking Cessation Medications and DC Order Prescriptions: New tamsulosin 0.4 mg Capsule 0.4 mg PO QAM 10 Days Qty: 10 0RF docusate sodium 100 mg Capsule 100 mg PO BID PRN (Reason: constipation) 5 Days Qty: 10 0RF No Action No Known Home Medications Discharge Orders: Discharge Order (Routine); Ordered 03/30/24 Ordered By: Willie Borrego Admission Data Admit Date/Time: 03/29/24 05:54 Attending Provider: Willie Borrego Admit Provider: Priya Berger Primary Care Provider: Lenora Massey Other Providers: Priya Berger; Anderson Hurd; Dre Whelan; Yazan Garcia; Erica Acosta; Dylan Galloway; Letha Kaplan; Ly Obando; Franko Jiang; Ashley Bal; Dg Mooney; Juan Barreto; Tulio Redmond Coding Level of Care Code 11418 INP/OBS DISCH >30 MIN Diagnoses Calculus of left ureter N20.1 Elevated lipase R74.8 Elevated lactic acid level R79.89 Time Spent (min) 35
== END 2024-03-30 17:08 | disposition home or self-care (01) | DRG 690 ==
LOC: SUATTDRO → ED 04:27 → SUATTDRO 05:54 → 3E 05:54